=== PATIENT | male | born 1950 | race Caucasian/White ===

== ENCOUNTER 2021-03-05 15:44 | Emergency (ER) | payer MEDICARE, OTHER ==
[~2021-03-05] VITALS: Ht 190.5 cm; Wt 96.4 kg
--- NOTE | 2021-03-05 16:31 | RAD ---
XR CHEST 1V CLINICAL INDICATIONS: Hypertension: COMPARISON: None available. Findings: Small granuloma of the right lower lung zone is seen. No acute lung infiltrate or pleural e ffusion or pulmonary edema or lung mass or pneumothorax is seen. The heart size, pulmonary vasculatu re, mediastinum and both nelson are unremarkable. IMPRESSION: No acute radiographic abnormality is seen. Electronically signed by: Wyatt Guevara MD (03/05/2021 4:29 PM) [id number]
--- NOTE | 2021-03-05 16:45 | PHYS DOC ---
Past History Past Medical History: Hypertension (JUANITA HINDS) Past Surgical History: No Surgical History (JUANITA HINDS) Alcohol Use: None (JUANITA HINDS) General Adult EDM: Chief Complaint: HYPERTENSION HPI: HPI: Patient is a 70 year old male with history of hypertension who presents with elevated blood pressure reading this morning. Patient reports he "just did not feel right" shortly after waking up this morning, so he checked his blood pressure. He reports it was in the 200s over 90s. In the past few weeks, patient has been taking his lisinopril in the morning, versus in the evening. He states he was recently visiting family and missed an evening dose, so he started taking it in the morning everyday. Since then he reports he has progressively felt more "off." He denies any specific complaints including headache, vision changes, visual field deficits, shortness of breath, cough, chest pain, palpitations, abdominal pain, NVD, dysuria, hematuria. (JUANITA HINDS) Review of Systems: Review of Systems: Constitutional: Denies fever or chills Eyes: Denies change in visual acuity HENT: Denies nasal congestion or sore throat Respiratory: Denies cough or shortness of breath Cardiovascular: Denies chest pain or edema GI: Denies abdominal pain, nausea, vomiting, bloody stools or diarrhea : Denies dysuria or hematuria Musculoskeletal: Denies back pain or joint pain Integument: Denies rash or other skin lesions Neurologic: Denies headache, focal weakness or sensory changes (JUANITA HINDS) Allergies: Allergies: Allergies Coded Allergies Type Severity Reaction Last Updated Verified No Known Drug Allergies 03/05/21 No (JUANITA HINDS) Physical Exam: PE: Constitutional: Well developed, well nourished, no acute distress, non-toxic appearance. HENT: Normocephalic, atraumatic, bilateral external ears normal, oropharynx moist, external nose without obvious deformity or discharge. Eyes: PERRLA, EOMI, conjunctiva normal, no discharge. Neck: Normal range of motion, no tenderness, supple, no JVD. Cardiovascular: Heart rate regular rhythm, no murmur. Lungs & Thorax: Bilateral breath sounds clear to auscultation. Abdomen: Bowel sounds normal, soft, no tenderness, no masses, no pulsatile masses. Skin: Warm, dry, no erythema, no rash. Back: No tenderness, no CVA tenderness. Extremities: No tenderness, no cyanosis, no clubbing, ROM intact, no edema. Neurologic: Alert and oriented x4, normal motor function, normal sensory function, no focal deficits noted. (JUANITA HINDS) Current Patient Data: Labs: Laboratory Tests Test 03/05/21 16:30 03/05/21 16:40 White Blood Count 8.0 x10^3/uL (4.0-11.0) Red Blood Count 4.82 x10^6/uL (4.30-5.70) Hemoglobin 16.0 g/dL (13.0-17.5) Hematocrit 47.4 % (39.0-53.0) Mean Corpuscular Volume 98 fL (79-100) Mean Corpuscular Hemoglobin 33 pg (25-35) Mean Corpuscular Hemoglobin Concent 34 g/dL (31-37) Red Cell Distribution Width 12.6 % (11.5-14.5) Platelet Count 284 x10^3/uL (140-400) Neutrophils (%) (Auto) 72 % (31-73) Lymphocytes (%) (Auto) 17 % (24-48) Monocytes (%) (Auto) 9 % (0-9) Eosinophils (%) (Auto) 1 % (0-3) Basophils (%) (Auto) 1 % (0-3) Neutrophils # (Auto) 5.7 x10^3uL (1.8-7.7) Lymphocytes # (Auto) 1.4 x10^3/uL (1.0-4.8) Monocytes # (Auto) 0.7 x10^3/uL (0.0-1.1) Eosinophils # (Auto) 0.1 x10^3/uL (0.0-0.7) Basophils # (Auto) 0.0 x10^3/uL (0.0-0.2) Sodium Level 140 mmol/L (136-145) Potassium Level 4.3 mmol/L (3.5-5.1) Chloride Level 104 mmol/L (98-107) Carbon Dioxide Level 28 mmol/L (21-32) Anion Gap 8 (6-14) Blood Urea Nitrogen 15 mg/dL (8-26) Creatinine 1.1 mg/dL (0.7-1.3) Estimated GFR (Cockcroft-Gault) 66.2 BUN/Creatinine Ratio 14 (6-20) Glucose Level 95 mg/dL (70-99) Calcium Level 9.0 mg/dL (8.5-10.1) Urine Collection Type Clean catch Urine Color Yellow Urine Clarity Clear Urine pH 5.5 Urine Specific Chase 1.025 Urine Protein Neg (NEG-TRACE) Urine Glucose (UA) Neg mg/dL (NEG) Urine Ketones (Stick) Neg mg/dL (NEG) Urine Blood Neg (NEG) Urine Nitrite Neg (NEG) Urine Bilirubin Small (NEG) Urine Urobilinogen Dipstick 0.2 mg/dL (0.2 mg/dL) Urine Leukocyte Esterase Neg (NEG) Urine RBC 0 /HPF (0-2) Urine WBC 0 /HPF (0-4) Urine Bacteria 0 /HPF (0-FEW) Vital Signs: Vital Signs Date Time Temp Pulse Resp B/P (MAP) Pulse Ox O2 Delivery O2 Flow Rate FiO2 03/05/21 16:12 97.2 77 16 198/95 (129) 98 Room Air (JUANITA HINDS) EKG: EKG: EKG Interpreted by Dr. Bird at 1640: Regular rate and rhythm 65 bpm with no ectopic beats. First-degree heart block [place] interval [address]-T wave changes. (JUANITA HINDS) Radiology/Procedures: Radiology/Procedures: PROCEDURE: PORTABLE CHEST 1V XR CHEST 1V CLINICAL INDICATIONS: Hypertension: COMPARISON: None available. Findings: Small granuloma of the right lower lung zone is seen. No acute lung infiltrate or pleural effusion or pulmonary edema or lung mass or pneumothorax is seen. The heart size, pulmonary vasculature, mediastinum and both nelson are unremarkable. IMPRESSION: No acute radiographic abnormality is seen. Electronically signed by: Wyatt Guevara MD (03/05/2021 4:29 PM) [id number] (JUANITA HINDS) Heart Score: C/O Chest Pain: No (JUANITA HINDS) Course & Med Decision Making: Course & Med Decision Making Pertinent Labs and Imaging studies reviewed. (See chart for details) Patient work-up today will include lab work, EKG, chest x-ray and urinalysis to screen for endorgan damage. Patient has no specific physical complaints and is reassured and encouraged to try to relax while in the department. Work-up is largely unremarkable. Only significant finding today is a first- degree heart block seen on EKG. There were no prior EKGs available to compare. Patient will be advised to follow-up with resistance brazer. His blood pressure in the department is much improved and is now in the 150s over 80s without any intervention. Discussed with the patient that he should keep a blood pressure log, recording his blood pressure in the morning and in the evening daily. He should bring this with him to his next appointment with his primary care provider. I gave him a target blood pressure reading of less than 130 systolic and/or less than 90 diastolic as a target for his age with history of hypertension. He should resume taking his medication in the evening, as he did prior to the onset of his concerns. Advised the patient that if his blood pressure reading does continue to be high in the morning, he can take an additional dose of his lisinopril. Patient's is at bedside. Both the patient and his understand and are agreeable to discharge plan. (JUANITA HINDS) Course & Med Decision Making I was the Attending physician on the above date of service of this patient. This patient was evaluated, examined, treated, and dispositioned from the emergency department by the mid-level practitioner. I reviewed case and agreed to plan of care Electronically signed, Loc Bird DO (LOC BIRD DO) Mekhi Disclaimer: Mekhi Disclaimer: This electronic medical record was generated, in whole or in part, using a voice recognition dictation system. (JUANITA HINDS) Departure Departure: Impression: Primary Impression: Elevated blood pressure reading Additional Impression: First degree heart block by electrocardiogram Disposition: HOME / SELF CARE / HOMELESS Condition: STABLE Referrals: NOEMI PIMENTEL DO (PCP) Patient Instructions: First Degree Atrioventricular Block, Hypertension, [id number] Additional Instructions: As discussed, your work-up today did not reveal any acutely concerning findings. Starting today, keep a blood pressure log, recording your blood pressure in the morning and in the evening daily. You should bring this with you to your next appointment with your primary care provider. Your target blood pressure reading should be less than 130 systolic (top number) and/or less than 90 diastolic (bottom number) as a target for your age with history of hypertension. You should resume taking your lisinopril in the evening, as you did prior to the onset of these concerns. If your blood pressure reading does continue to be high in the morning, you can take an additional dose of lisinopril. Your EKG did reveal a delay between atrial and ventricular contraction. In other words, there is a delay between the contraction of the top of your heart and the bottom of your heart. This is nothing that requires emergent attention, however you should follow with your resistance brazer if this is new. Please return to the emergency department for worsening symptoms or development of any new ones, especially chest pain, palpitations, shortness of breath, neurological changes or other pain. JUANITA HINDS Mar 05, 2021 16:45 LOC BIRD DO Mar 06, 2021 06:22
[2021-03-05 17:03] LABS: BASO % 1 % (0-3); EOS # 0.1 x10^3/uL (0.0-0.7); EOS % 1 % (0-3); HEMATOCRIT 47.4 % (39.0-53.0); LYMPH # 1.4 x10^3/uL (1.0-4.8); LYMPH % 17 % (24-48); MEAN CORPUSCULAR HEMOGLOBIN 33 pg (25-35); MEAN CORPUSCULAR HGB CONC 34 g/dL (31-37); MEAN CORPUSCULAR VOLUME 98 fL (79-100); MONO # 0.7 x10^3/uL (0.0-1.1); MONO % 9 % (0-9); NEUT # 5.7 x10^3uL (1.8-7.7); NEUT % 72 % (31-73); PLATELET COUNT 284 x10^3/uL (140-400); RED BLOOD COUNT 4.82 x10^6/uL (4.30-5.70); RED CELL DISTRIBUTION WIDTH 12.6 % (11.5-14.5)
[2021-03-05 17:06] LABS: BACTERIA,URINE 0 /HPF (0-FEW); BILIRUBIN,URINE SMALL (NEG); CLARITY,URINE CLEAR; COLOR,URINE YELLOW; GLUCOSE,URINE NEG (NEG); NITRITE,URINE NEG (NEG); RBC,URINE 0 /HPF (0-2); UROBILINOGEN,URINE 0.2 mg/dL (0.2 mg/dL); WBC,URINE 0 /HPF (0-4)
[2021-03-05 17:18] LABS: CREATININE 1.1 mg/dL (0.7-1.3); GFR 66.2; POTASSIUM 4.3 mmol/L (3.5-5.1)
[2021-03-05 17:25] VITALS: BP 155/84
[2021-03-05 17:32] LABS: ALBUMIN 3.8 g/dL (3.4-5.0); TOTAL BILIRUBIN 0.5 mg/dL (0.2-1.0); TOTAL PROTEIN 7.5 g/dL (6.4-8.2)
--- NOTE | 2021-03-05 18:57 | EKG ---
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
== END 2021-03-05 17:52 | disposition home or self-care (01) ==
LOC: ER 15:44
DX: I10 Essential (primary) hypertension (principal); I44.0 Atrioventricular block, first degree
CPT/HCPCS: 36415; 71045; 80053; 81001; 85025; 93005; 99285